=== PATIENT | female | born 1935 | race Two or more races ===

== ENCOUNTER 2024-04-09 18:33 | Inpatient (IN) | payer OTHER ==
[~2024-04-09] VITALS: Ht 154.9 cm; Wt 54.4 kg
--- NOTE | 2024-04-09 18:35 | NUR ---
PTE ALERTA Y ORIENTADA X3, LLEGA EN AMBULANCIA EN COMPANIA DE PARAMEDICOS QUIENES REFIEREN PTE VIENE DE [facility] POR FRACTURA DE CADERA DERECHA. E KAILA BRANHAM Y SE UBICA
[2024-04-09] MEDS ORDERED: ARICEPT10 MG (18:48)
[2024-04-09] MEDS ORDERED: PEPCID AC20 MG (18:48)
[2024-04-09] MEDS ORDERED: SYNTHROID88 MCG (18:48)
[2024-04-09] MEDS ORDERED: 0.9 % SODIUM CHLORIDE 1,000 ML IV SCH (19:00)
[2024-04-09] MEDS ORDERED: ACETAMINOPHEN 500 MG GEL..CAP PO PRN (19:15)
[2024-04-09] MEDS ORDERED: OxyCODONE HCL/APAP UD (PERCOCET) PO PRN (19:15)
[2024-04-09 20:24] LABS: HEMOGLOBIN 12.9 g/dL (12.0-15.00); MEAN CELL VOLUME 93.1 fL (80.00-100.00); MEAN CORPUSCULAR HEMOGLOBIN 31.6 pg (27.00-32.0); MEAN CORPUSCULAR HGB CONC 33.9 g/dl (32.0-36.0); PLATELET COUNT 232 K/uL (150-450); RED BLOOD COUNT 4.08 M/uL (4.00-6.00); RED CELL DISTRIBUTION WIDTH 13.3 % (11.5-14.5)
[2024-04-09 20:45] LABS: INR 0.97; PROTHROMBIN TIME 10.2 SECONDS (9.0-11.5)
[2024-04-09 20:50] LABS: ALBUMIN 3.1 gm/dL (3.4-5.0); BILIRUBIN TOTAL 0.47 mg/dL (0.3-1.2); CALCIUM 9.5 mg/dL (8.5-10.1); CREATININE SERUM 0.66 mg/dL (0.55-1.02); GFR 84.32; GLOBULINA 4.2 G/DL (2.4-3.5); POTASSIUM 4.24 mEq/L (3.5-5.1); TOTAL PROTEIN 7.3 gm/dL (6.4-8.2)
[2024-04-09 20:58] LABS: URINE APPEARANCE Cloudy; URINE BILIRRUBIN Negative (NEGATIVE); URINE BLOOD Negative; URINE COLOR Yellow; URINE GLUCOSE Negative (NEGATIVE); URINE LEUKOCYTE Trace; URINE NITRATE Negative; URINE PROTEIN Negative (NEGATIVE); URINE UROBILINOGEN 0.2 E.U./dl
[2024-04-09 21:01] LABS: URINE BACTERIA 71.7 uL (0.0-1933); URINE EPITHELIAL CELLS 5.5 uL (0.0-38.8); URINE RBC 15.4 uL (0.0-20.8); URINE WBC 19.1 uL (0.0-23.2)
[2024-04-09 21:09] LABS: COL EPI 147 SECONDS (82-175)
[2024-04-10] MEDS ORDERED: LEVOTHYROXINE SODIUM 88 MCG TABLET PO SCH (06:00)
[2024-04-10] MEDS ORDERED: FAMOTIDINE/PF 20 MG in 0.9 % SODIUM CHLORIDE 8 ML IV PUSH SCH (09:00)
[2024-04-10] MEDS ORDERED: LOSARTAN POTASSIUM 50 MG TABLET PO SCH (12:00)
[2024-04-10] MEDS ORDERED: CEFAZOLIN SODIUM 1,000 MG VIAL IV SCH (14:15)
[2024-04-10] MEDS ORDERED: DONEPEZIL HCL 10 MG TABLET PO SCH (17:00)
[2024-04-10] MEDS ORDERED: REMDESIVIR 100 MG VIAL IV NR (19:45)
[2024-04-11 07:10] LABS: HEMATOCRIT 38.1 % (36.0-45.00); HEMOGLOBIN 13.1 g/dL (12.0-15.00); MEAN CELL VOLUME 90.9 fL (80.00-100.00); MEAN CORPUSCULAR HEMOGLOBIN 31.2 pg (27.00-32.0); MEAN CORPUSCULAR HGB CONC 34.4 g/dl (32.0-36.0); PLATELET COUNT 214 K/uL (150-450); RED BLOOD COUNT 4.19 M/uL (4.00-6.00); RED CELL DISTRIBUTION WIDTH 13.4 % (11.5-14.5)
[2024-04-11] MEDS ORDERED: REMDESIVIR 100 MG VIAL IV SCH (17:00)
[2024-04-11] MEDS ORDERED: VANCOMYCIN HCL 1,000 MG VIAL IR ONE (18:00)
[2024-04-11] MEDS ORDERED: CEFAZOLIN SODIUM 1,000 MG VIAL IV ONE (18:00)
[2024-04-11] MEDS ORDERED: TRANEXAMIC ACID 100MG/1ML (1000MG) AMPUL IV ONE ×2 (18:00)
[2024-04-11] MEDS ORDERED: TRAMADOL HCL 50 MG TABLET PO PRN (20:15)
[2024-04-11] MEDS ORDERED: PROMETHAZINE HCL 50 MG/ML AMPUL IM PRN (20:15)
[2024-04-11] MEDS ORDERED: ONDANSETRON 4 MG TAB.RAPDIS PO PRN (20:15)
[2024-04-11] MEDS ORDERED: SODIUM CHLORIDE 0.45 % 1,000 ML IV SCH (20:15)
[2024-04-11] MEDS ORDERED: ONDANSETRON HCL 2 MG/ML VIAL IV PRN (20:15)
[2024-04-11] MEDS ORDERED: MEPERIDINE HCL/PF 50 MG/ML VIAL IM PRN (20:15)
[2024-04-11] MEDS ORDERED: SODIUM CHLORIDE FOR INHALATION 1 VIAL.NEB IH SCH (21:00)
[2024-04-12] MEDS ORDERED: CEFAZOLIN SODIUM 1,000 MG VIAL IV SCH (01:00)
[2024-04-12] MEDS ORDERED: PANTOPRAZOLE SODIUM 40 MG TABLET.DR PO SCH (09:00)
[2024-04-12] MEDS ORDERED: RIVAROXABAN 10 MG TAB PO SCH (09:00)
[2024-04-12 10:27] LABS: HEMATOCRIT 34.9 % (36.0-45.00); HEMOGLOBIN 11.7 g/dL (12.0-15.00); MEAN CELL VOLUME 91.1 fL (80.00-100.00); MEAN CORPUSCULAR HEMOGLOBIN 30.5 pg (27.00-32.0); MEAN CORPUSCULAR HGB CONC 33.5 g/dl (32.0-36.0); PLATELET COUNT 231 K/uL (150-450); RED BLOOD COUNT 3.83 M/uL (4.00-6.00); RED CELL DISTRIBUTION WIDTH 13.2 % (11.5-14.5)
[2024-04-13 07:17] LABS: HEMATOCRIT 31.5 % (36.0-45.00); HEMOGLOBIN 10.8 g/dL (12.0-15.00); MEAN CELL VOLUME 90.8 fL (80.00-100.00); MEAN CORPUSCULAR HEMOGLOBIN 31.1 pg (27.00-32.0); MEAN CORPUSCULAR HGB CONC 34.2 g/dl (32.0-36.0); PLATELET COUNT 215 K/uL (150-450); RED BLOOD COUNT 3.47 M/uL (4.00-6.00); RED CELL DISTRIBUTION WIDTH 13.3 % (11.5-14.5)
[2024-04-13] MEDS ORDERED: SENNA/DOCUSATE SODIUM 1 TAB TABLET PO SCH (09:00)
== END 2024-04-15 17:15 | disposition home or self-care (01) | DRG 469 ==
LOC: ER 18:33 → SURH 20:28 → SEC-K 20:28 → SURG 20:28 → SURH 04-10 03:52 → SURG 04-10 13:09
PROVIDERS: General Practice; Internal Medicine; Orthopaedic Surgery; ADMIT Internal Medicine; ATTEND Internal Medicine
PROC: XW033E5 Introduction of Remdesivir Anti-infective into Peripheral Vein, Percutaneous Approach, New Technology Group 5 (ICD-10-PCS; 2024-04-10)
PROC: 8E0ZXY6 Isolation (ICD-10-PCS; 2024-04-10)
PROC: 0SRR0JZ Replacement of Right Hip Joint, Femoral Surface with Synthetic Substitute, Open Approach (ICD-10-PCS; principal; 2024-04-11 11:00)
DX: S72.8X1A Other fracture of right femur, initial encounter for closed fracture (principal); U07.1 COVID-19; M16.11 Unilateral primary osteoarthritis, right hip; E03.9 Hypothyroidism, unspecified; W18.30XA Fall on same level, unspecified, initial encounter; Y93.9 Activity, unspecified; Y92.9 Unspecified place or not applicable; Y99.9 Unspecified external cause status